=== PATIENT | female | born 1990 | race Caucasian/White ===

== ENCOUNTER 2018-04-19 20:43 | Inpatient (IN) | payer MEDICAID, OTHER ==
[2018-04-19 22:12] LABS: RUPTURE FETAL MEMBRANES POSITIVE (NEGATIVE)
[2018-04-19 22:22] LABS: ADD UMIC YES; UR ASCORBIC ACID 20 mg/dL (NEGATIVE); UR BILIRUBIN (Dip) NEGATIVE (NEGATIVE); UR BLOOD (Dip) NEGATIVE (NEGATIVE); UR CLARITY TURBID (CLEAR); UR COLOR AMBER (YELLOW); UR GLUCOSE (Dip) NEGATIVE (NEGATIVE); UR KETONES (Dip) TRACE mg/dL (NEGATIVE); UR LEUKOCYTE ESTERASE (Dip) TRACE Leu/ul (NEGATIVE); UR MUCUS MODERATE /HPF (NONE SEEN); UR NITRITE (Dip) NEGATIVE (NEGATIVE); UR RBC 41 /HPF (0-5); UR SPECIFIC GRAVITY (Dip) 1.018 (1.003-1.030); UR SQUAMOUS EPITHELIAL CELL MANY /HPF (FEW); UR TOTAL PROTEIN (Dip) 2+ mg/dl (NEGATIVE); UR UROBILINOGEN (Dip) NEGATIVE (NEGATIVE); UR WBC 19 /HPF (0-5)
[2018-04-19] MEDS: LACTATED RINGER'S 1,000 ML IV ×2 (22:35→23:05)
[2018-04-19] MEDS ORDERED: CARBOPROST 250 MCG INJ IM (23:00)
[2018-04-19] MEDS ORDERED: MISOPROSTOL 200 MCG TAB PR (23:00)
[2018-04-19] MEDS ORDERED: OXYTOCIN 30 UNITS/LR 500 ML IV ×2 (23:00)
[2018-04-19] MEDS ORDERED: METHYLERGONOVINE 0.2 MG INJ IM (23:00)
[2018-04-19] MEDS ORDERED: IBUPROFEN 600 MG TAB PO (23:00)
[2018-04-19] MEDS ORDERED: BUTORPHANOL 1 MG INJ IV (23:00)
[2018-04-19] MEDS ORDERED: HYDROCODONE/APAP (5/325) TAB PO (23:00)
[2018-04-19] MEDS ORDERED: BUTORPHANOL 2 MG INJ IV (23:00)
[2018-04-19] MEDS: AMPICILLIN 2 GM/NS (PMX) 100 ML IV (23:34)
[2018-04-20] MEDS: OXYTOCIN 30 UNITS/LR 500 ML IV ×2 (00:01→18:02)
[2018-04-20 00:09] LABS: ADD MAN DIFF? NO
[2018-04-20 00:12] LABS: BASOPHILS % 0.1 % (0.0-2.0); EOSINOPHILS % 0.2 % (0.0-7.0); HEMATOCRIT 38.8 % (37.0-47.0); HEMOGLOBIN 13.1 g/dl (12.0-16.0); LYMPHOCYTES # 1.5 10^3/ul (0.8-2.9); LYMPHOCYTES % 14.7 % (15.0-51.0); MEAN CORPUSCULAR HEMOGLOBIN 30.2 pg (29.0-33.0); MEAN CORPUSCULAR HGB CONC 33.8 g/dl (32.0-37.0); MEAN CORPUSCULAR VOLUME 89.4 fl (82.0-101.0); MEAN PLATELET VOLUME 11.9 fl (7.4-10.4); MONOCYTE # 0.7 10^3/ul (0.3-0.9); MONOCYTES % 7.2 % (0.0-11.0); NEUTROPHIL # 7.8 10^3/ul (1.6-7.5); NEUTROPHILS % 77.4 % (39.0-77.0); PLATELET COUNT 203 10^3/UL (140-415); RED BLOOD COUNT 4.34 10^6/ul (4.20-5.40); RED CELL DISTRIBUTION WIDTH 13.3 % (11.5-14.5)
[2018-04-20 00:43] LABS: INR 0.91; PROTIME 12.3 Sec (11.9-14.9)
[2018-04-20 00:44] LABS: PARTIAL THROMBOPLASTIN TIME 27.4 Sec (25.0-35.0)
[2018-04-20 01:06] LABS: HEPATITIS B SURFACE ANTIGEN NEGATIVE (NEGATIVE)
[2018-04-20] MEDS: AMPICILLIN 1 GM/NS (PMX) 50 ML IV ×3 (03:37→11:47)
[2018-04-20] MEDS: LACTATED RINGER'S 1,000 ML IV ×2 (06:47→11:52)
[2018-04-20] MEDS: ONDANSETRON 4 MG INJ IV (13:35)
[2018-04-20] MEDS: LIDOCAINE 1% (MPF) 30 ML INJ INJ ×2 (16:30→17:11)
[2018-04-20] MEDS: MINERAL OIL LIGHT 10 ML VIAL TOP ×2 (16:30→17:12)
[2018-04-20 19:59] LABS: RAPID PLASMA REAGIN NONREACTIVE (NR)
[2018-04-20] MEDS: LACTATED RINGER'S 1,000 ML IV* (20:38)
[2018-04-20] MEDS ORDERED: DIBUCAINE 1% 30 GM OINT PR (21:00)
[2018-04-20] MEDS ORDERED: ZOLPIDEM 5 MG TAB PO (21:00)
[2018-04-20] MEDS ORDERED: METHYLERGONOVINE 0.2 MG INJ IM (21:00)
[2018-04-20] MEDS ORDERED: OXYTOCIN 30 UNITS/LR 500 ML IV (21:00)
[2018-04-20] MEDS ORDERED: HYDROCODONE/APAP (5/325) TAB PO (21:00)
[2018-04-20] MEDS ORDERED: CARBOPROST 250 MCG INJ IM (21:00)
[2018-04-20] MEDS ORDERED: MISOPROSTOL 200 MCG TAB PR (21:00)
[2018-04-20] MEDS: MAGNESIUM HYDROXIDE 30ML CUP PO (21:20)
[2018-04-20] MEDS: HYDROCODONE/APAP (5/325) TAB PO (21:20)
[2018-04-20] MEDS: SENNA/DOCUSATE NA (8.6MG/50MG) TAB PO (21:20)
[2018-04-21] MEDS: BENZOCAINE 20% 56 ML SPRAY TOP (00:13)
[2018-04-21] MEDS: WITCH HAZEL/GLYCERIN PAD PR (00:13)
[2018-04-21] MEDS: LANOLIN 7 GM TUBE TOP (00:13)
[2018-04-21] MEDS: IBUPROFEN 600 MG TAB PO ×5 (00:13→23:46)
[2018-04-21 06:23] LABS: ADD MAN DIFF? NO
[2018-04-21 06:27] LABS: BASOPHILS % 0.2 % (0.0-2.0); EOSINOPHILS % 0.2 % (0.0-7.0); LYMPHOCYTES # 1.7 10^3/ul (0.8-2.9); LYMPHOCYTES % 15.4 % (15.0-51.0); MEAN CORPUSCULAR HGB CONC 34.5 g/dl (32.0-37.0); MEAN CORPUSCULAR VOLUME 89.8 fl (82.0-101.0); MONOCYTE # 1.1 10^3/ul (0.3-0.9); NEUTROPHIL # 8.1 10^3/ul (1.6-7.5); NEUTROPHILS % 73.7 % (39.0-77.0); PLATELET COUNT 146 10^3/UL (140-415); RED BLOOD COUNT 3.23 10^6/ul (4.20-5.40); RED CELL DISTRIBUTION WIDTH 13.5 % (11.5-14.5)
[2018-04-21] MEDS: MAGNESIUM HYDROXIDE 30ML CUP PO ×2 (09:15→21:00)
[2018-04-21] MEDS: SENNA/DOCUSATE NA (8.6MG/50MG) TAB PO ×2 (09:15→21:00)
[2018-04-22] MEDS: IBUPROFEN 600 MG TAB PO ×2 (05:47→12:02)
[2018-04-22] MEDS: VARICELLA VACCINE LIVE/PF 1,350 UNIT/0.5 ML ML SC* (09:00)
[2018-04-22] MEDS: MEASLES,MUMPS,RUBELLA VACCINE INJ SC* (09:00)
[2018-04-22] MEDS: MAGNESIUM HYDROXIDE 30ML CUP PO (09:00)
[2018-04-22] MEDS: SENNA/DOCUSATE NA (8.6MG/50MG) TAB PO (09:00)
[2018-04-22] MEDS: DIPHTH/TET/ACEL PERTUSS (ADULT) 0.5 ML VIAL IM* (09:00)
== END 2018-04-22 15:00 | disposition home or self-care (01) | DRG 775 ==
LOC: OBT 20:43 → PP1 04-20 20:06 → L-D 20:44 → OBT 22:48 → L-D 22:32
PROC: 10E0XZZ Delivery of Products of Conception, External Approach (ICD-10-PCS; principal; 2018-04-20)
PROC: 0HQ9XZZ Repair Perineum Skin, External Approach (ICD-10-PCS; 2018-04-20)
DX: O70.0 First degree perineal laceration during delivery (principal); Z3A.38 38 weeks gestation of pregnancy; Z37.0 Single live birth
CPT/HCPCS: 76818; 81001; 84112; 85025; 85610; 85730; 86592; 86850; 86900; 86901; 87086; 87340; 96360